=== PATIENT | female | born 2000 | race Two or more races ===

== ENCOUNTER 2020-02-21 15:12 | Emergency (ER) | payer OTHER ==
[~2020-02-21] VITALS: Ht 157.5 cm; Wt 57.2 kg
[2020-02-21] MEDS ORDERED: PRENA1 TRUE CO1 EACH (15:41)
== END 2020-02-21 20:02 | disposition home or self-care (01) ==
LOC: ER 15:12
DX: O26.891 Other specified pregnancy related conditions, first trimester (principal); K29.60 Other gastritis without bleeding; Z3A.08 8 weeks gestation of pregnancy

== ENCOUNTER 2020-04-04 14:29 | Emergency (ER) | payer OTHER ==
[~2020-04-04] VITALS: Ht 157.5 cm; Wt 59.0 kg
[~2020-04-04 14:29] MED LIST: PRENA1 TRUE CO1 EACH
== END 2020-04-04 17:41 | disposition home or self-care (01) ==
LOC: ER 14:29
DX: O26.892 Other specified pregnancy related conditions, second trimester (principal); S30.1XXA Contusion of abdominal wall, initial encounter; R10.2 Pelvic and perineal pain; W01.198A Fall on same level from slipping, tripping and stumbling with subsequent striking against other object, initial encounter; Y93.89 Activity, other specified; Y92.018 Other place in single-family (private) house as the place of occurrence of the external cause; Y99.8 Other external cause status; Z3A.14 14 weeks gestation of pregnancy

== ENCOUNTER 2020-05-02 01:16 | Emergency (ER) | payer OTHER ==
[~2020-05-02] VITALS: Ht 157.5 cm; Wt 59.9 kg
== END 2020-05-02 04:13 | disposition home or self-care (01) ==
LOC: ER 01:16
DX: O20.0 Threatened abortion (principal)

== ENCOUNTER 2020-06-09 18:24 | Emergency (ER) | payer OTHER ==
[~2020-06-09] VITALS: Ht 157.5 cm; Wt 63.0 kg
[2020-06-09] MEDS ORDERED: MUCINEX DM ER1 EACH PO (22:06)
[2020-06-09] MEDS ORDERED: INTESTINEX680 M1 PO (22:06)
[2020-06-09] MEDS ORDERED: ACETAMINOPHEN650 M2 PO (22:06)
[2020-06-09] MEDS ORDERED: CEPHALEXIN500 MG PO (22:06)
[2020-06-09] MEDS ORDERED: ZYRTEC10 MG PO (22:12)
== END 2020-06-09 22:21 | disposition home or self-care (01) ==
LOC: ER 18:24
DX: J06.9 Acute upper respiratory infection, unspecified (principal); Z11.52 Encounter for screening for COVID-19

== ENCOUNTER 2020-07-12 13:52 | Outpatient (CLI) | payer OTHER ==
[~2020-07-12 13:52] MED LIST changes: +ACETAMINOPHEN650 M2 PO; +CEPHALEXIN500 MG PO; +INTESTINEX680 M1 PO; +MUCINEX DM ER1 EACH PO; +ZYRTEC10 MG PO
== END 2020-07-12 18:01 | disposition home or self-care (01) ==
LOC: OBS/DEL 13:52
PROVIDERS: ATTEND Specialist
DX: O47.1 False labor at or after 37 completed weeks of gestation (principal); Z3A.28 28 weeks gestation of pregnancy

== ENCOUNTER 2020-09-20 08:06 | Inpatient (IN) | payer OTHER ==
[~2020-09-20] VITALS: Ht 157.5 cm; Wt 69.9 kg
[2020-09-20] MEDS ORDERED: PROTONIX20 MG PO (08:59)
== END 2020-09-22 12:31 | disposition home or self-care (01) | DRG 807 ==
LOC: LDR 08:06 → OB/GYN 08:06
PROVIDERS: ADMIT Specialist; ATTEND Specialist
PROC: 10E0XZZ Delivery of Products of Conception, External Approach (ICD-10-PCS; principal; 2020-09-20)
PROC: 0W8NXZZ Division of Female Perineum, External Approach (ICD-10-PCS; 2020-09-20)
PROC: 4A1HXFZ Monitoring of Products of Conception, Cardiac Rhythm, External Approach (ICD-10-PCS; 2020-09-20)
DX: O99.824 Streptococcus B carrier state complicating childbirth (principal); Z37.0 Single live birth; Z3A.39 39 weeks gestation of pregnancy; Z20.822 Contact with and (suspected) exposure to COVID-19

== ENCOUNTER 2023-04-06 10:06 | Emergency (ER) | payer OTHER ==
[~2023-04-06] VITALS: Ht 157.5 cm; Wt 56.7 kg
[~2023-04-06 10:06] MED LIST changes: +PROTONIX20 MG PO
[2023-04-06 11:20] LABS: PH,URINE 7.5 (5.0-8.0); URINE APPEARANCE Clear; URINE BILIRRUBIN Negative (NEGATIVE); URINE BLOOD Negative; URINE COLOR Yellow; URINE GLUCOSE Negative (NEGATIVE); URINE LEUKOCYTE Trace; URINE NITRATE Negative; URINE PROTEIN Negative (NEGATIVE)
[2023-04-06 11:24] LABS: HEMATOCRIT 35.8 % (36.0-45.00); HEMOGLOBIN 12.1 g/dL (12.0-15.00); MEAN CELL VOLUME 92.6 fL (80.00-100.00); MEAN CORPUSCULAR HEMOGLOBIN 31.4 pg (27.00-32.0); MEAN CORPUSCULAR HGB CONC 33.9 g/dl (32.0-36.0); PLATELET COUNT 270 K/uL (150-450); RED BLOOD COUNT 3.87 M/uL (4.00-6.00); RED CELL DISTRIBUTION WIDTH 12.9 % (11.5-14.5)
[2023-04-06 11:26] LABS: URINE BACTERIA 555.5 uL (0.0-1933); URINE EPITHELIAL CELLS 19.6 uL (0.0-38.8); URINE WBC 23.9 uL (0.0-23.2)
[2023-04-06 12:16] LABS: CALCIUM 9.1 mg/dL (8.5-10.1); CREATININE SERUM 0.78 mg/dL (0.55-1.02); GFR 89.99; POTASSIUM 3.59 mEq/L (3.5-5.1)
== END 2023-04-06 15:21 | disposition home or self-care (01) ==
LOC: ER 10:07
PROVIDERS: General Practice
DX: O26.891 Other specified pregnancy related conditions, first trimester (principal); R10.2 Pelvic and perineal pain; Z3A.01 Less than 8 weeks gestation of pregnancy